=== PATIENT | female | born 1955 | race Asian ===

== ENCOUNTER → 2016-06-21 | Outpatient (CLI) | payer OTHER ==
[2016-06-25 15:33] LABS: QUANTIF TB AG-NIL 8.34 IU/ML; QUANTIFERON NIL 3.21 IU/ML
== END | disposition home or self-care (01) ==
LOC: C.LAB 09:04
PROVIDERS: ATTEND Family Medicine
DX: Z11.1 Encounter for screening for respiratory tuberculosis (principal)

== ENCOUNTER → 2016-07-09 | Outpatient (CLI) | payer OTHER ==
--- NOTE | 2016-07-09 09:50 | DIAGNOSTIC IMAGING REPORT ---
CHEST 2 VIEWS ROUTINE CLINICAL HISTORY: Evaluate for tuberculosis COMPARISON STUDY: No previous studies for comparison. FINDINGS: The cardiac and mediastinal contours are normal. There is no evidence of focal pulmonary consolidation. There is no evidence of failure. No pleural effusions are visualized.[ There is no conventional radiographic evidence of adenopathy. There is a 3 mm density within the left midlung zone, consistent with either a vascular summation or granuloma. IMPRESSION: No active disease in the chest. Electronically signed by: Keegan Gipson M.D. 07/09/2016 9:48 AM Dictated Date/Time: 07/09/2016 9:47 AM
== END | disposition home or self-care (01) ==
LOC: C.RAD 08:58
PROVIDERS: ATTEND Family Medicine
DX: Z11.1 Encounter for screening for respiratory tuberculosis (principal)